=== PATIENT | male | born 1935 | race Caucasian/White ===

== ENCOUNTER → 2018-01-17 12:56 | Outpatient (CLI) | payer OTHER, SELFPAY ==
[2018-01-17 15:50] LABS: Prostate Specific Antigen < 0.064 ng/mL (0.10-4.00)
== END ==
PROVIDERS: PCP Physician Assistant; Visit Provider Physician Assistant
DX: C61 Malignant neoplasm of prostate (principal)
CPT/HCPCS: 36415; 84153

== ENCOUNTER → 2018-05-30 09:45 | Outpatient (CLI) | payer OTHER, SELFPAY ==
[2018-05-30 10:42] LABS: Hematocrit 39.9 % (41-53); Hemoglobin 13.9 g/dL (13.5-17.5); Mean Corpuscular HGB Conc 34.8 % (30-36); Mean Corpuscular Hemoglobin 31.9 PG (26-34); Mean Corpuscular Volume 91.6 fL (80-100); Platelet Count 179 X10^3/uL (150-400); Red Blood Cell Count 4.36 X10^6/uL (4.5-5.9); Red Cell Distribution Width 13.1 % (11.6-14.8); White Blood Cell Count 9.1 X10^3/uL (4.5-11.0)
[2018-05-30 11:15] LABS: BUN Creatinine Ratio 9.4 (6-22); Blood Urea Nitrogen 15 mg/dL (9-20); Calcium 9.7 mg/dL (8.4-10.2); Carbon Dioxide 24 mmol/L (22-32); Chloride 102 mmol/L (98-107); Estimated Glomerular Filt Rate 41.6 mL/min (>60); Glucose 115 mg/dL (80-110); HEMOLYSIS < 15 (0-50); Phosphorous 3.1 mg/dL (2.3-3.7); Potassium 4.6 mmol/L (3.4-5.1); Sodium 138 mmol/L (137-145)
[2018-05-30 17:40] LABS: Protein (Total) Urine Random 12 mg/dL (0-12); Protein Creatinine Ratio Urine 0.22 GRAM/24H
== END ==
PROVIDERS: Family Provider Physician Assistant; PCP Physician Assistant; Visit Provider Internal Medicine Nephrology
DX: N05.9 Unspecified nephritic syndrome with unspecified morphologic changes (principal); D70.9 Neutropenia, unspecified; D63.1 Anemia in chronic kidney disease; R80.9 Proteinuria, unspecified; E83.30 Disorder of phosphorus metabolism, unspecified
CPT/HCPCS: 36415; 80048; 82570; 84100; 84156; 85027

== ENCOUNTER 2024-10-03 14:49 | Observation (INO) | payer OTHER, SELFPAY ==
[2024-10-03] VITALS (15 sets, daily range): BP systolic 170–199; BP diastolic 60–114; PULSE 61–71; RESP 14–27; TEMP 35.9–37.1; O2SAT 93–99; BMI 22.6
[2024-10-03 15:27] LABS: Hematocrit 32.3 % (41-53); Hemoglobin 9.9 g/dL (13.5-17.5); Mean Corpuscular HGB Conc 30.7 % (30-36); Mean Corpuscular Hemoglobin 28.1 PG (26-34); Mean Corpuscular Volume 91.7 fL (80-100); Platelet Count 370 X10^3/uL (150-400); Red Blood Cell Count 3.53 X10^6/uL (4.5-5.9); Red Cell Distribution Width 18.9 % (11.6-14.8)
[2024-10-03 15:32] LABS: Add Manual Diff / Slide Review YES; White Blood Cell Count 113.1 X10^3/uL (4.5-11.0)
--- NOTE | 2024-10-03 15:33 | EKG_ITS ---
[address] [address] Test Date: 2024-10-03 Pat Name: Homer Zamudio Department: [facility] Room: Gender: Male Structural Biologist: JUANITA : 1935 Requested By: Order Number: [id number] Reading MD: William Raphael Measurements Intervals [place] Rate: 64 P: 52 TX: 200 QRS: 29 QRSD: 108 T: 48 QT: 446 QTc: 460 Interpretive Statements Normal sinus rhythm Electronically Signed On 10-09-2024 18:54:26 PDT by William Raphael
[2024-10-03 15:36] LABS: Alanine Aminotransferase 15 IU/L (<50); Albumin 4.8 g/dL (3.5-5.0); Albumin Globulin Ratio 1.8 (1.0-2.8); Alkaline Phosphatase 93 U/L (38-126); Aspartate Aminotransferase 35 IU/L (17-59); BUN Creatinine Ratio 13.1 (6-22); Bilirubin Total 1.3 mg/dL (0.2-1.3); Blood Urea Nitrogen 28 mg/dL (9-20); Calcium 10.4 mg/dL (8.4-10.2); Carbon Dioxide 22 mmol/L (22-32); Chloride 103 mmol/L (98-107); Estimated Glomerular Filt Rate 29 mL/min (>60); Globulin 2.7 g/dL (1.7-4.1); Glucose 146 mg/dL (80-110); HEMOLYSIS < 15 (0-50); Lipase 62 U/L (23-300); Potassium 4.6 mmol/L (3.4-5.1); Sodium 137 mmol/L (137-145); Total Protein 7.5 g/dL (6.3-8.2)
[2024-10-03 15:44] LABS: Eosinophils Percent Manual 0.5 % (2-4); Neutrophils Absolute Manual 23186 /uL (3000-5900); Segmented Neutrophils Percent 20.5 % (38-70); Total Cells Counted 200
[2024-10-03 15:46] LABS: Anisocytosis 2+
--- NOTE | 2024-10-03 16:31 | PC.NURSE ---
Attempted to contact SENIOR MARKETING COORDINATOR; no answer.
--- NOTE | 2024-10-03 19:32 | ED_ITS ---
HPI - Abdominal Pain General Chief Complaint: Abdominal Pain Stated Complaint: NVD Time Seen by Provider: 10/03/24 19:31 Source: patient and EMS Mode of arrival: EMS History of Present Illness HPI narrative: 89-year-old male with a past medical history of leukemia, nephrectomy due to cancer, prostate cancer, comes into the ED via EMS from home for evaluation of nausea and vomiting decreased p.o. intake. He states that he has been having decreased p.o. intake with associated nausea and vomiting for the past 2 days, he states that he lives alone is now unable to take care of himself, patient presents with family friend at bedside who states that she has been helping him previously go to doctor's offices, however the patient states that he has stopped going to the oncologist office a proximally 2 months ago because he does not want any treatment done. He has is A&O x4, he is just complaining of nausea vomiting generalized weakness, he states he does not want anything done, he knows that he has leukemia and he just wants to be comfortable, however he states he is unable to take care of himself at home which is the reason he presents to the emergency department today. Related Data Allergies Allergy/AdvReac Type Severity Reaction Status Date / Time codeine Allergy Severe VOMIT Unverified 10/06/17 13:06 Review of Systems Review of Systems Narrative: General: Denies fever, chills, weight loss HEENT: Denies headache, eye drainage, eye irritation, head trauma, sore throat, voice change Cardiovascular: Denies any chest pain, palpitations, tachycardia Respiratory: Denies any shortness of breath, cough, wheeze, stridor GI/: Positive nausea and vomiting, Denies any, nausea, vomiting, diarrhea, bright red blood per rectum, melanotic stools, urinary frequency, urinary retention, dysuria, hematuria MSK: Denies any joint pain, muscle pains, swelling Skin: Denies any rashes, lesions, discoloration Neuro: Denies any headache, lightheadedness, dizziness, fainting, weakness Psych: Denies SI/HI Patient History Social History Smoking Status: Never smoker Smoking Status: Never smoker Exam Narrative Exam Narrative: General: Elderly, frail, cachectic Cooperative, not in acute distress HEENT: Normocephalic, atraumatic, PERRLA, normal sclera, eyelids normal Neck: Active full range of motion, atraumatic Chest: Normal to inspection, negative crepitus, no overlying erythema ecchymosis Respiratory: Normal respiratory effort, not in acute respiratory distress, clear to auscultation bilaterally negative cough, wheeze, tachypnea, rhonchi, rales Cardiology: Regular rate rhythm negative gallop, murmur, rubs GI/: No tenderness to palpation, soft, non rigid, normal to inspection, exam deferred MSK: Full active range of motion in all 4 extremities, atraumatic, no tenderness to palpation of any bony prominences Skin: No rashes or lesions noted Neuro: Alert awake oriented x3, moves all 4 extremities spontaneously, cranial nerves intact, able to answer all questions appropriately follows commands appropriately Psych: Cooperative, negative suicidal or homicidal ideations Initial Vital Signs Initial Vital Signs: Vital Signs Temperature 96.7 F L 10/03/24 14:53 Pulse Rate 61 10/03/24 14:53 Respiratory Rate 18 10/03/24 14:53 Blood Pressure 183/73 H 10/03/24 14:53 Pulse Oximetry 99 10/03/24 14:53 Oxygen Delivery Method Room Air 10/03/24 14:53 Course Orders Ordered: ED Orders 10/03/24 14:59 EKG-12 Lead Stat 10/03/24 15:14 Complete Blood Count AUTO DIFF Stat Comprehensive Metabolic Panel Stat Lipase Stat Pathologist Review (for CBC) Stat 10/03/24 16:13 [place] [facility] [place] Stat Sodium Chloride (Normal Saline 0.9%) 1,000 mls @ 1,000 mls/hr IV BOLUS ONE Stop: 10/03/24 20:52 Last Admin: 10/03/24 20:01 Dose: 1,000 mls/hr Documented By: Ondansetron HCl (Ondansetron 4 Mg/2 Ml Inj) 4 mg IV NOW PRN PRN Reason: Nausea And Vomiting Ondansetron HCl (Ondansetron 4 Mg Odt) 4 mg PO NOW PRN PRN Reason: Nausea And Vomiting Discontinued Medications Ondansetron HCl (Ondansetron 4 Mg/2 Ml Inj) 4 mg IV NOW ONE Stop: 10/03/24 19:54 Last Admin: 10/03/24 20:01 Dose: 4 mg Documented By: MR Vital Signs Vital signs: Vital Signs - 8 hr 10/03/24 14:53 10/03/24 15:06 10/03/24 15:07 Temperature 96.7 F L Pulse Rate 61 63 Respiratory Rate 18 Blood Pressure 183/73 H Pulse Oximetry 99 98 99 Oxygen Delivery Method Room Air 10/03/24 15:07 10/03/24 15:30 10/03/24 15:30 Temperature Pulse Rate 62 Respiratory Rate 20 Blood Pressure 170/73 H 182/77 H Pulse Oximetry 95 Oxygen Delivery Method 10/03/24 16:00 10/03/24 16:00 10/03/24 16:30 Temperature Pulse Rate 63 63 Respiratory Rate 22 Blood Pressure 188/77 H Pulse Oximetry 97 94 Oxygen Delivery Method 10/03/24 16:30 10/03/24 17:00 10/03/24 17:00 Temperature Pulse Rate 66 Respiratory Rate 19 Blood Pressure 188/76 H 177/114 H Pulse Oximetry 94 Oxygen Delivery Method 10/03/24 17:30 10/03/24 17:30 10/03/24 18:00 Temperature Pulse Rate 68 Respiratory Rate 18 Blood Pressure 190/84 H 170/75 H Pulse Oximetry 95 Oxygen Delivery Method 10/03/24 18:00 10/03/24 18:30 10/03/24 18:30 Temperature Pulse Rate 66 69 Respiratory Rate 19 27 H Blood Pressure 191/79 H Pulse Oximetry 93 97 Oxygen Delivery Method 10/03/24 19:00 10/03/24 19:00 10/03/24 19:30 Temperature Pulse Rate 68 71 Respiratory Rate 18 18 Blood Pressure 172/103 H Pulse Oximetry 95 94 Oxygen Delivery Method 10/03/24 19:31 10/03/24 20:00 10/03/24 20:00 Temperature Pulse Rate 69 Respiratory Rate 20 Blood Pressure 199/82 H 174/85 H Pulse Oximetry 94 Oxygen Delivery Method MDM - Abdominal Pain Differential Diagnosis Differential diagnosis: Likely other (Electrolyte abnormality, leukemia, metastatic disease, palliative care) Lab Data 10/03/24 15:14 10/03/24 15:14 Labs: Lab Results 10/03/24 Range/Units 15:14 WBC 113.1 H* (4.5-11.0) X10^3/uL RBC 3.53 L (4.5-5.9) X10^6/uL Hgb 9.9 L (13.5-17.5) g/dL Hct 32.3 L (41-53) % MCV 91.7 (80-100) fL MCH 28.1 (26-34) PG MCHC 30.7 (30-36) % RDW 18.9 H (11.6-14.8) % Plt Count 370 (150-400) X10^3/uL Neut % (Auto) Not Reportable Lymph % (Auto) Not Reportable [place] % (Auto) Not Reportable Eos % (Auto) Not Reportable Baso % (Auto) Not Reportable Lymph # (Auto) Not Reportable [place] # (Auto) Not Reportable Baso # (Auto) Not Reportable Total Counted 200 Seg Neutrophils % 20.5 L (38-70) % Lymphocytes % (Manual) 77.0 H (25-45) % Monocytes % (Manual) 2.0 (2-11) % Eosinophils % (Manual) 0.5 L (2-4) % Neutrophils # (Manual) 35948 H (0004-0789) /uL RBC Morphology See below Anisocytosis 2+ H Sodium 137 (137-145) mmol/L Potassium 4.6 (3.4-5.1) mmol/L Chloride 103 (98-107) mmol/L Carbon Dioxide 22 (22-32) mmol/L BUN 28 H (9-20) mg/dL Creatinine 2.13 H (0.66-1.25) mg/dL Estimated GFR 29 L (>60) mL/min BUN/Creatinine Ratio 13.1 (6-22) Glucose 146 H (80-110) mg/dL Calcium 10.4 H (8.4-10.2) mg/dL Total Bilirubin 1.3 (0.2-1.3) mg/dL AST 35 (17-59) IU/L ALT 15 (<50) IU/L Alkaline Phosphatase 93 (38-126) U/L Total Protein 7.5 (6.3-8.2) g/dL Albumin 4.8 (3.5-5.0) g/dL Globulin 2.7 (1.7-4.1) g/dL Albumin/Globulin Ratio 1.8 (1.0-2.8) Lipase 62 (23-300) U/L Point of care testing: Urine Dip Bedside Urine Glucose Negative Bedside Urine Bilirubin + 1 Bedside Urine Ketone +/- 5 Urine Specific Many 1.020 Bedside Urine Occult Blood - Negative Bedside Urine pH 6.0 Bedside Urine Protein +/- 15 Bedside Urine Urobilinogen - Negative Bedside Urine Nitrite - Negative Bedside Urine Leukocytes - Negative Esterase MDM Narrative Medical decision making narrative: 89-year-old male with a known history of leukemia in the past medical history of renal cancer status post nephrectomy and prostate cancer presenting for nausea and vomiting and palliative care. He states he has been having nausea and vomiting ongoing persistent for the past 2 days has had decreased p.o. intake secondary to this and is now unable to ambulate, he states that he just wants to be ?comfortable he states that he stopped visiting his oncologist a proximally 2 months ago due to the fact that he did not want any treatments done and it was ?causing him too much money. He is A&O x4, he states that he wants to be DNR DNI and only wants to be comfortable, he states he does not want any other additional images or interventions, I had a lengthy conversation with him and he states that he just wants comfort/palliative care, therefore patient will be admitted to the hospital for palliative/comfort care. Fluids ordered, antinausea meds ordered. The patient's management plan was discussed Dr. Sosa, who agrees to admit the patient to their service and assumes care of this patient at this time. Full admission orders will be placed by the primary team. Discharge Plan Departure Patient Disposition: Admitted As Inpatient Clinical Impression: Admission for palliative care, Leukocytosis
[2024-10-03] MEDS: ONDANSETRON 4 MG/2 ML INJ IV (20:01)
[2024-10-03] MEDS: SODIUM CHLORIDE 0.9% 1,000 ML 1000 ML IV (20:01)
--- NOTE | 2024-10-03 20:46 | PM.HP.1 ---
History of Present Illness History of Present Illness Chief complaint: NVD Narrative: Patient is 89M with PMH of leukemia, prostate cancer, h/o nephrectomy presenting to ED with N/V, decreased oral intake x2 days. He lives alone without nearby family, and is cared by a neighbor/family friend. He stopped following up with his oncologist 2 months ago because he no longer wanted treatment. He also has weakness. His goal is now comfort care. WBC is >113K, creatinine 2.13. ER doctor completed POLST with patient, made him DNR/I, and started comfort care measures. [facility] Social History Smoking Status: Never smoker Meds Home Medications and Allergies Allergies Allergy/AdvReac Type Severity Reaction Status Date / Time codeine Allergy Severe VOMIT Unverified 10/06/17 13:06 Review of Systems Review of Systems Narrative: as per HPI. Rest of 10-system review negative. Exam Vital Signs (past 8 hours): - 10/03/24 14:53 10/03/24 15:06 10/03/24 15:07 Temperature 96.7 F L Pulse Rate 61 63 Respiratory Rate 18 Blood Pressure 183/73 H Pulse Oximetry 99 98 99 Oxygen Delivery Method Room Air 10/03/24 15:07 10/03/24 15:30 10/03/24 15:30 Temperature Pulse Rate 62 Respiratory Rate 20 Blood Pressure 170/73 H 182/77 H Pulse Oximetry 95 Oxygen Delivery Method 10/03/24 16:00 10/03/24 16:00 10/03/24 16:30 Temperature Pulse Rate 63 63 Respiratory Rate 22 Blood Pressure 188/77 H Pulse Oximetry 97 94 Oxygen Delivery Method 10/03/24 16:30 10/03/24 17:00 10/03/24 17:00 Temperature Pulse Rate 66 Respiratory Rate 19 Blood Pressure 188/76 H 177/114 H Pulse Oximetry 94 Oxygen Delivery Method 10/03/24 17:30 10/03/24 17:30 10/03/24 18:00 Temperature Pulse Rate 68 Respiratory Rate 18 Blood Pressure 190/84 H 170/75 H Pulse Oximetry 95 Oxygen Delivery Method 10/03/24 18:00 10/03/24 18:30 10/03/24 18:30 Temperature Pulse Rate 66 69 Respiratory Rate 19 27 H Blood Pressure 191/79 H Pulse Oximetry 93 97 Oxygen Delivery Method 10/03/24 19:00 10/03/24 19:00 10/03/24 19:30 Temperature Pulse Rate 68 71 Respiratory Rate 18 18 Blood Pressure 172/103 H Pulse Oximetry 95 94 Oxygen Delivery Method 10/03/24 19:31 10/03/24 20:00 10/03/24 20:00 Temperature Pulse Rate 69 Respiratory Rate 20 Blood Pressure 199/82 H 174/85 H Pulse Oximetry 94 Oxygen Delivery Method Oxygen Delivery Method Room Air Const Other: Calm, appropriate, NAD, frail, hard of hearing HENMT Other: NC/AT, healed abrasion L forehead/faith Eyes Other: Glasses. Makes eye contact Neck Other: supple Resp Other: CTA-B Cardio Other: RRR GI Other: S/NT/ND/+BS Skin Other: moles, actinic keratoses Neuro Other: normal speech Extrem Other: no edema Psych Other: normal mood Objective Labs 10/03/24 15:14 10/03/24 15:14 Labs: Laboratory Results - last 24 hr 10/03/24 15:14 WBC 113.1 H* RBC 3.53 L Hgb 9.9 L Hct 32.3 L MCV 91.7 MCH 28.1 MCHC 30.7 RDW 18.9 H Plt Count 370 Neut % (Auto) Not Reportable Lymph % (Auto) Not Reportable [place] % (Auto) Not Reportable Eos % (Auto) Not Reportable Baso % (Auto) Not Reportable Lymph # (Auto) Not Reportable [place] # (Auto) Not Reportable Baso # (Auto) Not Reportable Total Counted 200 Seg Neutrophils % 20.5 L Lymphocytes % (Manual) 77.0 H Monocytes % (Manual) 2.0 Eosinophils % (Manual) 0.5 L Neutrophils # (Manual) 19189 H RBC Morphology See below Anisocytosis 2+ H Sodium 137 Potassium 4.6 Chloride 103 Carbon Dioxide 22 BUN 28 H Creatinine 2.13 H Estimated GFR 29 L BUN/Creatinine Ratio 13.1 Glucose 146 H Calcium 10.4 H Total Bilirubin 1.3 AST 35 ALT 15 Alkaline Phosphatase 93 Total Protein 7.5 Albumin 4.8 Globulin 2.7 Albumin/Globulin Ratio 1.8 Lipase 62 Assessment & Plan Assessment and plan (1) Leukocytosis: Qualifiers: Leukocytosis type: unspecified Qualified Code(s): D72.829 - Elevated white blood cell count, unspecified Status: Acute (2) Admission for palliative care: Status: Acute Assessment & Plan narrative: 1. Active leukemia, prostate cancer, not on current treatment 2. Leucocytosis 3. Generalized weakness 4. SARBJIT Plan: 1. Admit to floor, comfort care, DNR/I 2. opiates for pain, zofran for nausea, ativan for anxiety 3. SW consulted for hospice 4. q shift vitals 5. No labs. Time-Based Coding :: [TOTAL MINUTES] spent with patient and on the chart (including review of chart, obtaining history, exam, reviewing outside data, placing orders, documenting exam and treatment plan, and counseling patient) on [DATE].
[2024-10-03] MEDS: SODIUM CHLORIDE 0.9% 1,000 ML 60 ML IV (22:56)
[2024-10-04] MEDS: ONDANSETRON 4 MG ODT PO (05:03)
--- NOTE | 2024-10-04 05:40 | PC.WOUNDPHOT ---
1) Redness to right side of scrotum, initially looked like a blister- but there is no blister. Pt reports its been there for years. 2)abrasion to left side of forehead
[2024-10-04 08:00] VITALS: BP 166/69; PULSE 60; RESP 17; TEMP 36.4; O2SAT 100
[2024-10-04] MEDS: ACETAMINOPHEN 325 MG TABLET 650 MG PO (08:28)
[2024-10-04] MEDS: LORazepam 2 MG/ML INJ 1 MG IV ×2 (09:12→15:10)
--- NOTE | 2024-10-04 12:38 | CM.SWNOTE ---
ED INSTRUMENT ENGINEER Follow Up Note: Reviewed chart, INSTRUMENT ENGINEER consulted to follow up with possible home health referral due to concerns of recovering while pt is also primary caregiver for son. PCP: Dr. Weston Taveras Insurance: [facility] and Medicaid. INSTRUMENT ENGINEER attempted to call pt at number listed 2x and pt did not return call. Pt would benefit from follow up call about a ED follow up appt with PCP, inquire about home health referral and any other needs in the community. Lauren Mosher, TAXATION INSPECTOR
--- NOTE | 2024-10-04 14:29 | PM.PN.1 ---
Subjective Subjective Date Patient Seen: 10/04/24 Time Patient Seen: 14:29 Interval history: Chief complaint: Leukemia with progression at end of treatment and now unable to care for self History of present illness: Patient is 89M with PMH of leukemia, prostate cancer, h/o nephrectomy presenting to ED with N/V, decreased oral intake x2 days. He lives alone without nearby family, and is cared by a neighbor/family friend. He stopped following up with his oncologist 2 months ago because he no longer wanted treatment. He also has weakness. His goal is now comfort care. WBC is >113K, creatinine 2.13. ER doctor completed POLST with patient, made him DNR/I, and started comfort care measures. Hospital course: 10/04: No further developments overnight feeling nauseated and very jittery today asking for something to relieve his symptoms. Patient wants to pass on Review of systems: No chest pain shortness for breath Physical exam: Exam Vital Signs (past 8 hours): - 10/04/24 08:00 Temperature 97.6 F Pulse Rate 60 Respiratory Rate 17 Blood Pressure 166/69 H Pulse Oximetry 100 Oxygen Flow Rate 0 Oxygen Delivery Method Room Air Oxygen Flow Rate 0 Objective Labs 10/03/24 15:14 10/03/24 15:14 Labs: Laboratory Results - last 24 hr 10/03/24 15:14 WBC 113.1 H* RBC 3.53 L Hgb 9.9 L Hct 32.3 L MCV 91.7 MCH 28.1 MCHC 30.7 RDW 18.9 H Plt Count 370 Neut % (Auto) Not Reportable Lymph % (Auto) Not Reportable [place] % (Auto) Not Reportable Eos % (Auto) Not Reportable Baso % (Auto) Not Reportable Lymph # (Auto) Not Reportable [place] # (Auto) Not Reportable Baso # (Auto) Not Reportable Total Counted 200 Seg Neutrophils % 20.5 L Lymphocytes % (Manual) 77.0 H Monocytes % (Manual) 2.0 Eosinophils % (Manual) 0.5 L Neutrophils # (Manual) 88891 H RBC Morphology See below Anisocytosis 2+ H Sodium 137 Potassium 4.6 Chloride 103 Carbon Dioxide 22 BUN 28 H Creatinine 2.13 H Estimated GFR 29 L BUN/Creatinine Ratio 13.1 Glucose 146 H Calcium 10.4 H Total Bilirubin 1.3 AST 35 ALT 15 Alkaline Phosphatase 93 Total Protein 7.5 Albumin 4.8 Globulin 2.7 Albumin/Globulin Ratio 1.8 Lipase 62 [facility] Social History household members: none Smoking Status: Never smoker Assessment & Plan Time-Based Coding :: [TOTAL MINUTES] spent with patient and on the chart (including review of chart, obtaining history, exam, reviewing outside data, placing orders, documenting exam and treatment plan, and counseling patient) on [DATE]. Quality VTE Deep Vein Thrombosis/Pulmonary Embolism Present on Admission: No
[2024-10-04 19:33] VITALS: BP 175/59; PULSE 61; RESP 16; TEMP 36.7; O2SAT 94
[2024-10-04] MEDS: SODIUM CHLORIDE 0.9% FLUSH 10 ML IV (21:36)
[2024-10-05] MEDS: LORazepam 2 MG/ML INJ 1 MG IV ×4 (06:30→20:58)
[2024-10-05 08:00] VITALS: BP 190/89; PULSE 60; RESP 16; TEMP 36.7; O2SAT 95
[2024-10-05] MEDS: SODIUM CHLORIDE 0.9% FLUSH 10 ML IV ×2 (08:26→20:59)
[2024-10-05] MEDS: HYDROMORPHONE 2 MG TABLET PO ×2 (12:39→23:24)
--- NOTE | 2024-10-05 15:09 | CM.DANOTE ---
Initial DCP Assessment Visit Note Reviewed EMR and team rounds for status updates. Met with pt's CHRISTIANO/Luana Correa at bedside to introduce self and role, pt was found to be sleeping, was not arousable to sound or touch. Pt had been alone living modified independently in his subsidized apartment in [place]. He is anticipated to while inpt during this admission. Payor: [facility] Adv PCP: Lana Acuña Pt is a 89 year-old M with a hx of metastatic, end stage leukemia, a 1-sided nephrectomy, and had been off of Oncology tx for the alst few months, as he was told there were no further options available for effective tx benefit. He does have dtr that lives in [place], and manages pt's finances, visits intermittently, and keeps track of his needs through Luana/CHRISTIANO. Pt prsented to the ED via EMS with c/o nausea, vomiting, decrease PO intake, and extreme fatigue/weakness for the last several days. He shared with ED staff that he was unable to take care of himself, had end stage cancer, had no one to take care of him, and wanted to be kept comfortable until he dies. He was started on low dose comfort meds, which was converted to the full comfort meds protocol, and has been declining very rapidly. His dtr will arrive from [place] tomorrow, and will plan to meet with this CELLULAR EQUIPMENT INSTALLER re: next steps: apply for Medicaid, or cancel if pt is still not improving. He was expressed his wishes to donate his body to science. This CELLULAR EQUIPMENT INSTALLER requested that dtr bring the information for who to call at the time of , and encouraged her to reach out to the company to confirm that he is still registered. Discharge Planning/Care Management CM Discharge Assessment Start: 10/05/24 15:06 Freq: Status: Active Protocol: Document 10/05/24 15:06 DPL (Rec: 10/05/24 15:09 DPL [id number]) Discharge Planning Assessment Assigned Valve Lapper SUNI Garcia Advance Directives? No History Provided By Friend,Medical Record Has Patient been admitted in last 30 No days? Prior Living Arrangements Apartment/Condo Household Members none Type of transporation used prior to Relies on Others admit Independent with ADL's No: modified w/assistance Is patient alert and oriented? No Needs Assistance With Home Chores / Shopping Comment transportation Caregiver for Another No Comment Pt is on comfort measures, end stage leukemia. Comment Pt is anticipated to pass away in the hospital. Barriers to Discharge Yes Comment No caregiver, no financial ability to pay for care, unable to care for himself. Discharge Plan Pt expected to in Hospital Referrals Initiated None needed Whiteboard Updated in Patient Room with Yes name and ext. # of Valve Lapper Review Status In Process Please Provide Date Initial DC 10/05/24 Assessment Was Performed
--- NOTE | 2024-10-05 17:25 | P.PN_ITS ---
Subjective Subjective Date Patient Seen: 10/05/24 Interval history: Chief complaint: Leukemia with progression at end of treatment and now unable to care for self History of present illness: Patient is 89M with PMH of leukemia, prostate cancer, h/o nephrectomy presenting to ED with N/V, decreased oral intake x2 days. He lives alone without nearby family, and is cared by a neighbor/family friend. He stopped following up with his oncologist 2 months ago because he no longer wanted treatment. He also has weakness. His goal is now comfort care. WBC is >113K, creatinine 2.13. ER doctor completed POLST with patient, made him DNR/I, and started comfort care measures. Hospital course: 10/04: No further developments overnight feeling nauseated and very jittery today asking for something to relieve his symptoms. Patient wants to pass on 10/05: Patient comfortable no changes in his clinical condition Case management notes: Pt presented to the ED via EMS with c/o nausea, vomiting, decrease PO intake, and extreme fatigue/weakness for the last several days. He shared with ED staff that he was unable to take care of himself, had end stage cancer, had no one to take care of him, and wanted to be kept comfortable until he dies. He was started on low dose comfort meds, which was converted to the full comfort meds protocol, and has been declining very rapidly. His dtr will arrive from [place] tomorrow, and will plan to meet with this CRUSHER MACHINE OPERATOR re: next steps: apply for Medicaid, or cancel if pt is still not improving. He was expressed his wishes to donate his body to science. This CRUSHER MACHINE OPERATOR requested that dtr bring the information for who to call at the time of , and encouraged her to reach out to the company to confirm that he is still registered. Review of systems: No chest pain shortness for breath Physical exam: Elderly gentleman disheveled no acute distress very pleasant HEENT unremarkable new line Heart and lungs clear Abdomen nontender new line extremities no edema Assessment and plan: 1. Active leukemia, prostate cancer, not on current treatment 2. Leucocytosis 3. Generalized weakness unable to care for self requires placement 4. SARBJIT Plan: 1. Admit to floor, comfort care, DNR/I 2. opiates for pain, zofran for nausea, ativan for anxiety 3. SW consulted for hospice 4. q shift vitals 5. No labs. Time-Based Coding 25 minutes spent with patient and on the chart (including review of chart, obtaining history, exam, reviewing outside data, placing orders, documenting exam and treatment plan, and counseling patient). Exam Vital Signs (past 8 hours): Oxygen Delivery Method Room Air Oxygen Flow Rate 0 Objective Labs 10/03/24 15:14 10/03/24 15:14 [facility] Social History household members: none Smoking Status: Never smoker Assessment & Plan Time-Based Coding :: [TOTAL MINUTES] spent with patient and on the chart (including review of chart, obtaining history, exam, reviewing outside data, placing orders, documenting exam and treatment plan, and counseling patient) on [DATE]. Quality VTE Deep Vein Thrombosis/Pulmonary Embolism Present on Admission: No
[2024-10-05 20:00] VITALS: BP 177/79; PULSE 63; RESP 20; TEMP 36.4; O2SAT 93
[2024-10-06] MEDS: LORazepam 2 MG/ML INJ 1 MG IV ×3 (03:14→08:16)
[2024-10-06] MEDS: HYDROMORPHONE 2 MG INJ IV ×2 (05:04→08:15)
--- NOTE | 2024-10-06 07:31 | P.PN_ITS ---
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 He lives alone without nearby family, and is cared by a neighbor/family friend. He stopped following up with his oncologist 2 months ago because he no longer wanted treatment. He also has weakness. His goal is now comfort care. WBC is >113K, creatinine 2.13. ER doctor completed POLST with patient, made him DNR/I, and started comfort care measures. Hospital course: 10/04: No further developments overnight feeling nauseated and very jittery today asking for something to relieve his symptoms. Patient wants to pass on 10/05: Patient comfortable no changes in his clinical condition Case management notes: Pt presented to the ED via EMS with c/o nausea, vomiting, decrease PO intake, and extreme fatigue/weakness for the last several days. He shared with ED staff that he was unable to take care of himself, had end stage cancer, had no one to take care of him, and wanted to be kept comfortable until he dies. He was started on low dose comfort meds, which was converted to the full comfort meds protocol, and has been declining very rapidly. His dtr will arrive from [employer] tomorrow, and will plan to meet with this VOTING MACHINE REPAIRER re: next steps: apply for Medicaid, or cancel if pt is still not improving. He was expressed his wishes to donate his body to science. This VOTING MACHINE REPAIRER requested that dtr bring the information for who to call at the time of , and encouraged her to reach out to the company to confirm that he is still registered. 10/06: Review of systems: No chest pain shortness for breath Physical exam: Elderly gentleman disheveled no acute distress very pleasant HEENT unremarkable new line Heart and lungs clear Abdomen nontender new line extremities no edema Assessment and plan: 1. Active leukemia, prostate cancer, not on current treatment 2. Leucocytosis 3. Generalized weakness unable to care for self requires placement 4. SARBJIT Plan: 1. Admit to floor, comfort care, DNR/I 2. opiates for pain, zofran for nausea, ativan for anxiety 3. SW consulted for hospice 4. q shift vitals 5. No labs. Time-Based Coding 25 minutes spent with patient and on the chart (including review of chart, obtaining history, exam, reviewing outside data, placing orders, documenting exam and treatment plan, and counseling patient). Exam Vital Signs (past 8 hours): Oxygen Delivery Method Room Air Oxygen Flow Rate 0 Objective Labs 10/03/24 15:14 10/03/24 15:14 [facility] Social History household members: none Smoking Status: Never smoker Assessment & Plan Time-Based Coding :: [TOTAL MINUTES] spent with patient and on the chart (including review of chart, obtaining history, exam, reviewing outside data, placing orders, documenting exam and treatment plan, and counseling patient) on [DATE]. Quality VTE Deep Vein Thrombosis/Pulmonary Embolism Present on Admission: No
[2024-10-06] MEDS: ATROPINE 1% OPHTH 2 DROPS SL (08:15)
[2024-10-06] MEDS: SODIUM CHLORIDE 0.9% FLUSH 10 ML IV (08:16)
[2024-10-06] MEDS: SCOPOLAMINE 1 PATCH TOP ×2 (08:31→08:43)
--- NOTE | 2024-10-06 10:42 | PM.DDS.1 ---
Discharge Summary Hospital Course Date of Admission: 10/03/24 20:38 Date of : 10/06/24 Primary care provider: Nara Acuña PA-C Consults: 10/03/24 16:13 Consult to [facility] [place] - Credit Resolution Representative Stat Comment: lives alone, friend concerned Credit Resolution Representative Consult needed for:: Lives alone Comment: Friend is concerned because patient is confused at baseline and its getting worse and he lives home alone. 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 He lives alone without nearby family, and is cared by a neighbor/family friend. He stopped following up with his oncologist 2 months ago because he no longer wanted treatment. He also has weakness. His goal is now comfort care. WBC is >113K, creatinine 2.13. ER doctor completed POLST with patient, made him DNR/I, and started comfort care measures. Hospital course: 10/04-10/05: No further developments overnight feeling nauseated and very jittery today asking for something to relieve his symptoms. Patient wants to pass on 10/06 patient this morning Physical exam: Assessment and plan: 1. Active leukemia, prostate cancer, not on current treatment patient Time-Based Coding 25 minutes spent with patient and on the chart (including review of chart, obtaining history, exam, reviewing outside data, placing orders, documenting exam and treatment plan, and counseling patient). Objective Labs 10/03/24 15:14 10/03/24 15:14
--- NOTE | 2024-10-06 10:49 | PC.NURSE ---
Addendum entered by Isabella Galindo R.N. 10/06/24 13:36: Dtr arrived and she spent time with pt and landscape nurseryman came in to see them and prayed with them. The were able to reach a decision about which home they were going to use. Body was picked up at 1335. Original Note: MD Cronin called this am. Pt has mucous and secretions coming from mouth. He is unresponsive and appears to be actively dying. See new orders. At 0825 Luana was called and notified pt appears to be dying and if she would like to come in. Dtr is also driving up from [email or web address]. Luana says she will be here as quickly as she can. At 0937 Pt was found to have no heart beat, no resp. pronounced at 0937. Dr. Cronin made aware of . Luana recalled, she is at the front of the hospital on her way. Very sad when she got here. Crying. Assisted Luana to pt's bedside. Luana gave this newspaper writer a card. The patient has donated his body to [facility]. However when number called and talked with sales representative meats found out they don't service the [facility] yet. Luana spoke with the sales representative meats. She is waiting for the dtr to get here as she wants the family to make the decision as to arrangements.
--- NOTE | 2024-10-06 13:00 | CM.DPNOTE ---
DCP Note: Reviewed chart and discussed with multidisciplinary team pt's medical status, RN Helen requesting SW to speak with family as they had questions about home options. DCP met w/patient at daughterLuana. It is reported pt daughter has calls out to several homes; they are hoping for a cremation service. DCP provided another list of home options and alternatives, educational materials about grief; pt daughter appreciative. WINDY AriasSW
--- NOTE | 2024-11-09 13:29 | PC.NURSE ---
Late Entry: discharge documentation updated to appropriate discharge status; .
== END 2024-10-06 09:37 | disposition home or self-care (01) ==
LOC: ED 19:54 → AC 21:31
PROVIDERS: Emergency Medicine; Admitting Provider Internal Medicine; Emergency Provider Student in an Organized Health Care Education/Training Program; Family Provider Physician Assistant; PCP Physician Assistant; Referring Provider Student in an Organized Health Care Education/Training Program; Visit Provider Internal Medicine
DX: R11.2 Nausea with vomiting, unspecified (principal); C95.90 Leukemia, unspecified not having achieved remission; C61 Malignant neoplasm of prostate; N17.9 Acute kidney failure, unspecified; Z51.5 Encounter for palliative care; Z66 Do not resuscitate
CPT/HCPCS: 80053; 81003; 83690; 85007; 85025; 93005; 96361; 96374; 96375; 96376; 99284; G0378; J1171; J2060; J2405